=== PATIENT | male | born 1965 | race Asian ===

== ENCOUNTER 2022-07-02 21:26 | Emergency (ER) | payer OTHER ==
[~2022-07-02] VITALS: Ht 195.6 cm; Wt 120.2 kg
[2022-07-02 22:04] LABS: PLATELET COUNT 200 K/uL (142-355)
[2022-07-02 23:20] VITALS: BP 149/69; TEMP 98.6
[2022-07-03] MEDS ORDERED: TYLENOL325 MG PO (09:20)
[2022-07-03] MEDS ORDERED: LIPITOR80 MG PO (09:21)
[2022-07-03] MEDS ORDERED: AQUAPHOR TOP (09:21)
[2022-07-03] MEDS ORDERED: B-121000 MC4 PO (09:22)
[2022-07-03] MEDS ORDERED: BASAGLAR K100 UNIT/M SC (09:22)
[2022-07-03] MEDS ORDERED: CARBAMAZEPIN200 MG PO (09:25)
[2022-07-03] MEDS ORDERED: LAXATIVE5 M1 PO (09:25)
[2022-07-03] MEDS ORDERED: CLON1TAB18 PO (09:26)
[2022-07-03] MEDS ORDERED: CLOP75TA2 PO (09:27)
[2022-07-03] MEDS ORDERED: CARB6.5S5 OTIC (09:28)
[2022-07-03] MEDS ORDERED: DIVALPROEX250 M1 PO (09:29)
[2022-07-03] MEDS ORDERED: VENLAFAXINE ER PO (09:30)
[2022-07-03] MEDS ORDERED: NEURONTIN 100M100 MG PO (09:31)
[2022-07-03] MEDS ORDERED: INSULIN AS100 UNIT/M SC (09:34)
[2022-07-03] MEDS ORDERED: LACO200T PO (09:34)
[2022-07-03] MEDS ORDERED: XALATAN0.005 % OPTH (09:35)
[2022-07-03] MEDS ORDERED: LEVE5MLUD PO (09:36)
[2022-07-03] MEDS ORDERED: METF500T PO (09:37)
[2022-07-03] MEDS ORDERED: MELATONIN3 M1 PO (09:37)
[2022-07-03] MEDS ORDERED: MIRALAX17 GM/SCOO PO (09:38)
[2022-07-03] MEDS ORDERED: HYDR5TAB9 PO (09:39)
[2022-07-03] MEDS ORDERED: ZYPREXA ZYDI5 MG PO (09:40)
== END 2022-07-02 23:20 | disposition still patient (30) ==
LOC: ED 21:26
PROVIDERS: Emergency Medicine
DX: F33.9 Major depressive disorder, recurrent, unspecified (principal); Z11.52 Encounter for screening for COVID-19; Z04.6 Encounter for general psychiatric examination, requested by authority
CPT/HCPCS: 36415; 80053; 85027; 87635; 93005; 99283; U0003